=== PATIENT | female | born 1995 | race Caucasian/White ===

== ENCOUNTER 2023-11-06 10:16 | Emergency (ER) | payer OTHER ==
[2023-11-06 11:03] VITALS: BP 106/72; PULSE 90; RESP 18; TEMP 97.2; O2SAT 96
[2023-11-06 11:21] LABS: Absolute Neutrophil Ct (ANC) 2.73 x10^3/uL (1.4-6.9); BASOPHIL % 0.4 % (0.0-0.4); Basophil (Absolute #) 0.02 x10^3/uL (0-0.4); Eosinophil % 1.5 % (0.00-5.0); Eosinophil (Absolute #) 0.07 x10^3/uL (0-0.5); Hematocrit 39.1 % (35-47); IMMATURE GRAN # 0.01 x10^3u/L (0.00-0.03); IMMATURE GRAN % 0.2 % (0.00-0.4); Lymphocyte (Absolute #) 1.73 x10^3/uL (1.0-4.6); Lymphocytes % 36.3 % (24.0-44.0); Mean Cell Volume 89.3 fL (78-100); Mean Corpuscular Hemoglobin 29.7 pg (26-32); Mean Corpuscular Hgb Concent. 33.2 g/dL (32-36); Mean Platelet Volume 10.2 fL (7.5-11.0); Monocyte (Absolute #) 0.21 x10^3/uL (0.0-1.3); Monocytes % 4.4 % (0.0-12.0); Neutrophil % 57.2 % (36.0-66.0); Platelet Count 222 x10^3/uL (150-450); Red Blood Count 4.38 x10^6/uL (4.1-5.4); Red Cell Distribution Width 11.8 % (11.5-14.0); White Blood Count 4.8 x10^3/uL (4.0-10.5)
[2023-11-06 11:35] LABS: ALBUMIN 4.3 g/dL (3.5-5.0); ANION GAP 12.4 MEQ/L (5-15); BILIRUBIN,TOTAL 0.5 mg/dL (0.2-1.3); Calcium 9.1 mg/dL (8.4-10.2); Creatinine 1 0.9 mg/dL (0.52-1.04); EST GLOMERULAR FILTRATION RATE 88.8 ML/MIN; Potassium 4.1 mmol/L (3.5-5.1); Total Protein 7.7 g/dL (6.3-8.2)
--- NOTE | 2023-11-06 11:46 | ERPHSYRPT ---
- History of Present Illness Time Seen by Provider: 11/06/23 11:42 Source: patient Exam Limitations: no limitations Patient Subjective Stated Complaint: pt here for headache, she states pressure for 3 1/2 weeks now, no injury, Triage Nursing Assessment: pt alert, oriented,. walked in, easy easy skin w/d/p. no edema noted, pupils 3mm, moves all ext well Physician History: pt here for headache, she states pressure for 3 1/2 weeks now, no injury As her pain become unbearable she came to the emergency room. Patient is 28-year-old female otherwise healthy started having a headache off and on mainly on the mu-ism area and top of the head for last 3 to 4 weeks. Patient was also complaining of pressure around her nose and the maxillary sinus area. Patient is also complaining of pressure in her left ear. Patient was seen in the office 2 weeks ago at that time patient was started on migraine medication which has not helped her a lot. Patient was also seen in acute care where he was diagnosed with otitis media and started her on prednisone which helped her for a while but then her headache came back. She denies any nausea vomiting syncopal episode shortness of breath or chest pain. Timing/Duration: week(s) (3-4 weeks) Head Pain Location: parietal Severity of Pain-Max: mild Severity of Pain-Current: mild Recent Head Trauma: no recent headache/trauma Associated Symptoms: other (pressure like feeling on top of head and ear left side) Allergies/Adverse Reactions: No Known Drug Allergies Allergy (Unverified 11/06/23 10:57) Home Medications: Famotidine 20 mg [Pepcid 20 MG] 20 mg PO DAILY 11/06/23 [History] Hx Influenza Vaccination/Date Given: No Hx Pneumococcal Vaccination/Date Given: No Immunizations Up to Date: Yes Travel Risk - International Travel Have you traveled outside of the country in past 3 weeks: No - Coronavirus Screening Are you exhibiting any of the following symptoms?: No Close contact with a COVID-19 positive Pt in past 14-21 Days: No - Vaccine Status Have you recieved a Covid-19 vaccination: No - Review of Systems Constitutional: No Fever, No Chills Eyes: No Symptoms Ears, Nose, & Throat: Other (maxillary sinus pain) Respiratory: No Cough, No Dyspnea Cardiac: No Chest Pain, No Edema, No Syncope Abdominal/Gastrointestinal: No Abdominal Pain, No Nausea, No Vomiting, No Diarrhea Genitourinary Symptoms: No Dysuria Musculoskeletal: No Back Pain, No Neck Pain Skin: No Rash Neurological: Headache, No Dizziness, No Focal Weakness, No Sensory Changes Psychological: No Symptoms Endocrine: No Symptoms All Other Systems: Reviewed and Negative - Past Medical History Pertinent Past Medical History: No - Past Surgical History Past Surgical History: Yes Musculoskeletal: Orthopedic Surgery Other Surgical History: hand and foot - Social History Smoking Status: Former smoker Exposure to second hand smoke: No Drug Use: none - Female History Hx Last Menstrual Period: last week Hx Now: No - Nursing Vital Signs Nursing Vital Signs: Initial Vital Signs Temperature 97.2 F 11/06/23 11:02 Pulse Rate 90 11/06/23 11:02 Respiratory Rate 18 11/06/23 11:02 Blood Pressure 106/72 11/06/23 11:02 O2 Sat by Pulse Oximetry 96 11/06/23 11:02 Pain Scale Pain Intensity 7 - Physical Exam General Appearance: no apparent distress Eye Exam: PERRL/EOMI Ears, Nose, Throat Exam: normal ENT inspection, moist mucous membranes, other (bilateral maxillary sinus tender ness) Neck Exam: normal inspection, supple, full range of motion, No meningismus Respiratory Exam: normal breath sounds, lungs clear Cardiovascular Exam: regular rate/rhythm, normal heart sounds Gastrointestinal/Abdominal Exam: soft, No tenderness, No distention Back Exam: normal inspection, normal range of motion Mental Status Exam: alert, oriented x 3, 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 Exam: normal speech, PERRL, No facial droop Coordination/Gait Exam: normal cerebellar function Motor/Sensory Exam: no motor deficit, no sensory deficit Skin Exam: normal color, warm, dry, No rash SpO2: 96 - Course Nursing assessment & vital signs reviewed: Yes - CT Exams Head CT Interpretation: Tele-radiologist Report Ordered Tests: Active Orders 24 hr Category Date Time Status HEAD WITHOUT CONTRAST [CT] Stat Exams 11/06/23 11:09 Completed CBC W DIFF Stat Lab 11/06/23 11:15 Completed CMP Stat Lab 11/06/23 11:15 Completed Lab/Rad Data: Laboratory Result Diagrams 11/06/23 11:15 11/06/23 11:15 Laboratory Results 11/06/23 11/06/23 Range/Units 11:15 11:15 WBC 4.8 (4.0-10.5) x10^3/uL RBC 4.38 (4.1-5.4) x10^6/uL Hgb 13.0 (12.0-16.0) g/dL Hct 39.1 (35-47) % MCV 89.3 (78-100) fL MCH 29.7 (26-32) pg MCHC 33.2 (32-36) g/dL RDW 11.8 (11.5-14.0) % Plt Count 222 (150-450) x10^3/uL MPV 10.2 (7.5-11.0) fL Gran % 57.2 (36.0-66.0) % Immature Gran % (Auto) 0.2 (0.00-0.4) % Nucleat RBC Rel Count 0.0 (0.00-0.1) % Eos # (Auto) 0.07 (0-0.5) x10^3/uL Immature Gran # (Auto) 0.01 (0.00-0.03) x10^3u/L Absolute Lymphs (auto) 1.73 (1.0-4.6) x10^3/uL Absolute Monos (auto) 0.21 (0.0-1.3) x10^3/uL Absolute Nucleated RBC 0.00 (0.00-0.01) x10^3u/L Lymphocytes % 36.3 (24.0-44.0) % Monocytes % 4.4 (0.0-12.0) % Eosinophils % 1.5 (0.00-5.0) % Basophils % 0.4 (0.0-0.4) % Absolute Granulocytes 2.73 (1.4-6.9) x10^3/uL Basophils # 0.02 (0-0.4) x10^3/uL Sodium 138 (137-145) mmol/L Potassium 4.1 (3.5-5.1) mmol/L Chloride 103 (98-107) mmol/L Carbon Dioxide 26 (22-30) mmol/L Anion Gap 12.4 (5-15) MEQ/L BUN 10 (7-17) mg/dL Creatinine 0.90 (0.52-1.04) mg/dL Estimated GFR 88.8 ML/MIN Glucose 102 (74-106) mg/dL Calcium 9.1 (8.4-10.2) mg/dL Total Bilirubin 0.50 (0.2-1.3) mg/dL AST 22 (14-36) U/L ALT 13 (0-35) U/L Alkaline Phosphatase 45 (38-126) U/L Serum Total Protein 7.7 (6.3-8.2) g/dL Albumin 4.3 (3.5-5.0) g/dL 0007 CT/HEAD WITHOUT CONTRAST CLINICAL HISTORY:headache parietal area for 3 weeks COMPARISON:none. TECHNIQUE:CT scan of the brain without contrast administration. Images were acquired in axial cuts with coronal and sagittal reformation. FINDINGS: No area of abnormally low or high attenuation value was seen. No CT evidence of acute infarction. Normal size, position and configuration of the ventricular system. No shift of the midline structures. No evidence of intra or extra axial recent hematoma. Normal appearance of the posterior fossa structures including the brainstem and cerebellum. Bone window settings showed no evidence of fractures or destructive lesions. Evidence of cavum septum pellucidum. S-shaped deviated nasal septum. Pam bullosae in both middle turbinates. IMPRESSION: Unremarkable CT scan of the brain. Evidence of cavum septum pellucidum ( normal variant ). S-shaped deviated nasal septum. - Progress Progress: improved Counseled pt/family regarding: lab results, diagnosis, need for follow-up, rad results Medical Desision Making - Diagnostic Testing Diagnostic test were ordered, analyzed, and reviewed by me: Yes Radiological Interpretation: Reviewed by me - Risk of complications Minimal Risk: Minimal risk of morbidity - Departure Departure Disposition: Home Clinical Impression: Headache on top of head, Deviated nasal septum, Maxillary sinusitis, chronic Condition: Stable Critical Care Time: No Referrals: MAHESH WEAVER MD [Primary Care Provider] - Follow up/PCP as directed Instructions: Deviated septum, Sinusitis, Adult (DC), Sinus Headache (DC), Headache, Adult (DC) Additional Instructions: Discharge/Care Plan BRANTSAILAJA MEDINA was seen on 11/06/23 in the Emergency Room. The patient was counseled regarding Diagnosis,Lab results, Imaging studies, need for follow up and when to return to the Emergency Room. Prescriptions given: Discharge Note I have spoken with the patient and/or caregivers. I have explained the patient's condition, diagnosis and treatment plan based on the information available to me at this time. I have answered the patient's and/or caregiver's questions and addressed any concerns. The patient and/or caregivers have as good understanding of the patient's diagnosis, condition and treatment plan as can be expected at this point. The vital signs have been stable. The patient's condition is stable and appropriate for discharge from the emergency department. The patient will pursue further outpatient evaluation with the primary care physician or other designated or consulting physician as outlined in the discharge instructions. The patient and/or caregivers are agreeable to this plan of care and follow-up instructions have been explained in detail. The patient and/or caregivers have received these instruction. The patient/and or caregivers are aware that any significant change in condition or worsening of symptoms should prompt an immediate return to this or the closest emergency department or call 911. SAILAJA GUO was seen on 11/06/23 n the Emergency Room. At that time you were treated for an emergent condition, during your visit Laboratory, Radiology and/or other procedures may have been ordered. It is very important that you follow-up with your Primary Care Physician MAHESH WEAVER within the next 24-48 hours to review your Emergency Room visit and the final results of testing that was ordered. Some test results such as Urine Cultures, Blood Cultures, and other cultures if ordered will not be finalized for 24-48 hours. If you do not have a Primary Care Provider please call the medical records department at [phone] ext [phone] to obtain a copy of your results or you may sign into our patient portal to obtain these results by visiting us @ [email or web address] and completing the following steps: 1. Click on the Patient Portal link 2. Click the Patient Self Enrollment Link to complete the enrollment form and entering your 3. Once the enrollment form is completed you will receive an email with a temporary ID and password at the email address you provided. 4. Next choose a user name and password. Your user name must be at least 4 characters long and your password must be at least 4 characters long. 5. Choose a security question from the list and provide your answer to the question. If you already have signed into the Health Portal you may access your Health Care Information 21/06 by the following steps: 1. Login to our website @ [email or web address] 2. Enter your original user name and password. FAQS The [facility] Health Portal is an online tool that contains your Lab Results, Radiology Reports, Visit History, Discharge Instructions and Health Summary Lab and Radiology Results will not be available for 72 hours on the portal. The Portal is a secure site, passwords are encryted and URLs are re-written so they cannot be copied and pasted. You and authorized family members are the only ones who can access your Portal. Also there is a timeout feature that protects your information if you leave the Portal page open. If you have technical difficulty please use the Contact Us link on the page this will allow you to submit any questions you have regarding the Portal or you may contact the Medical Record Department at [phone]. Prescriptions: Azithromycin [Azithromycin 250 mg Pack] 250 mg PO UD #6 tablet Fluticasone Propionate [Flonase NASAL] 16 gm NS BID #60 inh
--- NOTE | 2023-11-06 12:51 | XRAY ---
CLINICAL HISTORY:headache parietal area for 3 weeks COMPARISON:none. TECHNIQUE:CT scan of the brain without contrast administration. Images were acquired in axial cuts with coronal and sagittal reformation. FINDINGS: No area of abnormally low or high attenuation value was seen. No CT evidence of acute infarction. Normal size, position and configuration of the ventricular system. No shift of the midline structures. No evidence of intra or extra axial recent hematoma. Normal appearance of the posterior fossa structures including the brainstem and cerebellum. Bone window settings showed no evidence of fractures or destructive lesions. Evidence of cavum septum pellucidum. S-shaped deviated nasal septum. Pam bullosae in both middle turbinates. IMPRESSION: Unremarkable CT scan of the brain. Evidence of cavum septum pellucidum ( normal variant ). S-shaped deviated nasal septum. Electronically Signed by: Wanda Acevedo MD. (11/06/2023 12:47:24 EST)
== END 2023-11-06 13:31 | disposition home or self-care (01) ==
LOC: ED 10:16
DX: J32.0 Chronic maxillary sinusitis (principal); J34.2 Deviated nasal septum; R51.9 Headache, unspecified; Z79.899 Other long term (current) drug therapy; Z28.310 Unvaccinated for COVID-19
CPT/HCPCS: 36415; 70450; 80053; 85025; 99282

== ENCOUNTER 2025-10-14 10:08 | Emergency (ER) | payer OTHER ==
[2025-10-14 10:24] VITALS: RESP 18; TEMP 97.9
[2025-10-14 10:55] LABS: BASOPHIL % 0.4 % (0.1-1.2); Basophil (Absolute #) 0.02 x10^3/uL (0.01-0.08); Eosinophil (Absolute #) 0.08 x10^3/uL (0.04-0.36); Hematocrit 38.9 % (34.1-44.9); Hemoglobin 12.6 g/dL (11.2-15.7); IMMATURE GRAN # 0.01 x10^3u/L (0.001-0.031); IMMATURE GRAN % 0.2 % (0.001-0.429); Lymphocyte (Absolute #) 1.95 x10^3/uL (1.18-3.74); Mean Corpuscular Hemoglobin 29.0 pg (25.6-32.2); Mean Corpuscular Hgb Concent. 32.4 g/dL (32.2-35.5); Monocyte (Absolute #) 0.26 x10^3/uL (0.24-0.86); NUCLEATED RBC # 0.00 x10^3u/L (0.00-0.012); NUCLEATED RBC % 0.0 % (0.00-0.2); Platelet Count 225 x10^3/uL (182-369); Red Blood Count 4.34 x10^6/uL (3.93-5.22); White Blood Count 5.5 x10^3/uL (3.98-10.04)
[2025-10-14] MEDS ORDERED: TYLENOL 325 MG ONE (10:55)
[2025-10-14] MEDS ORDERED: Cyclobenzaprine 10 MG ONE (10:55)
[2025-10-14] MEDS: TYLENOL 325 MG PO ONE (10:56)
--- NOTE | 2025-10-14 10:56 | ERPHSYRPT ---
- History of Present Illness Time Seen by Provider: 10/14/25 10:09 Source: patient Exam Limitations: no limitations Patient Subjective Stated Complaint: Pt. states, "I went to the chiropractor on wednesday for an adjustment and ever since I have been having that awful pain in my spine and over into my left shoulder. I have a slipped disc between L4-L5 and it doesn't normally give me any trouble but it is really hurting bad. The pain moves up my spine into my shoulder and makes my arms and legs tingle. It is more like a discomfort an itch I can't scratch" Triage Nursing Assessment: Pt. ambulates to room with slow stiff gait, she is A&Ox3, Skin P/W/D, REsp. even unlabored, tearful. Moving slowly and stiff. Sensation in tact to all four ext. Physician History: 30-year-old female presents to the emergency room with lower back pain and neck pain patient reports described numbness and tingling goes down her left arm she does recall pain and tingling that goes down her bilateral lower extremities denies any trouble urinating denies any problems defecating denies any fevers denies any prior history of IV drug use she reports she recently had adjustments done by chiropractor she also had some cupping done on Wednesday the chiropractor just was on Wednesday she is now in the ED for worsening pain and tingling Timing/Duration: day(s) (4) Quality: aching Back Pain Location: C-spine, T-spine, lumbar spine Back Pain Radiation: lower legs Severity of Pain-Max: mild Severity of Pain-Current: mild Associated Symptoms: numbness in legs/feet, tingling in legs/feet, muscle spasms, No light-headedness, No sensory/motor loss Allergies/Adverse Reactions: No Known Drug Allergies Allergy (Unverified 11/06/23 10:57) Hx Influenza Vaccination/Date Given: No Hx Pneumococcal Vaccination/Date Given: No Travel Risk - International Travel Have you traveled outside of the country in past 3 weeks: No - Emerging Infectious Disease Are you exhibiting symptoms associated with any current EIDs: No - Review of Systems Constitutional: No Fever, No Chills Eyes: No Symptoms Ears, Nose, & Throat: No Symptoms Respiratory: No Cough, No Dyspnea Cardiac: No Chest Pain, No Edema, No Syncope Abdominal/Gastrointestinal: No Abdominal Pain, No Nausea, No Vomiting, No Diarrhea Genitourinary Symptoms: No Dysuria Musculoskeletal: Back Pain, Neck Pain Skin: No Rash Neurological: No Dizziness, No Focal Weakness, No Sensory Changes Psychological: No Symptoms Endocrine: No Symptoms All Other Systems: Reviewed and Negative - Past Medical History Pertinent Past Medical History: Yes Other Medical History: slipped disc L4-L5 - Past Surgical History Past Surgical History: Yes Musculoskeletal: Orthopedic Surgery Other Surgical History: hand and foot - Female History Hx Last Menstrual Period: 2 weeks ago Hx Now: No - Social History Smoking Status: Former smoker Exposure to second hand smoke: No Drug Use: none - Social Determinants of Health Will the patient participate in the screening: Declined to provide - Nursing Vital Signs Nursing Vital Signs: Initial Vital Signs Temperature 97.9 F 10/14/25 10:09 Pulse Rate 107 H 10/14/25 10:09 Respiratory Rate 18 10/14/25 10:09 Blood Pressure 148/110 10/14/25 10:09 O2 Sat by Pulse Oximetry 98 10/14/25 10:09 Pain Scale Pain Intensity [Back] 7 Pain Intensity 7 - Physical Exam General Appearance: no apparent distress, alert Eye Exam: PERRL/EOMI, eyes nml inspection Neck Exam: normal inspection, non-tender, other (paraspinal muscle spasms), No meningismus, No midline tenderness Respiratory Exam: normal breath sounds, lungs clear, No respiratory distress Cardiovascular Exam: regular rate/rhythm, normal heart sounds Gastrointestinal Exam: soft, No tenderness, No mass Back Exam: muscle spasm Extremity Exam: normal inspection, normal range of motion, No calf tenderness, No pedal edema Neurologic Exam: alert, oriented x 3, cooperative, 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-XII nml as tested, normal mood/affect, nml station & gait, sensation nml, No motor deficits Skin Exam: normal color, warm, dry, No rash SpO2: 98 Ordered Tests: Active Orders 24 hr Category Date Time Status IV Insertion STAT Care 10/14/25 10:[address] ANGIOGRAPHY NECK [CT] Stat Exams 10/14/25 10:45 Completed CTA HEAD W AND/OR WO CONTRAST [CT] Stat Exams 10/14/25 11:03 Completed LUMBAR SPINE W/O [CT] Stat Exams 10/14/25 10:43 Completed THORACIC SPINE W/O CONTRAST [CT] Stat Exams 10/14/25 10:43 Taken CBC W DIFF Stat Lab 10/14/25 10:50 Completed CMP Stat Lab 10/14/25 10:50 Completed CULTURE,URINE Stat Lab 10/14/25 10:43 Received ESR [Erythrocyte Sedimentation Rate] Stat Lab 10/14/25 10:50 Completed Lactic Acid Stat Lab 10/14/25 10:43 Completed UA W/RFX UR CULTURE Stat Lab 10/14/25 10:43 Completed Medication Summary Discontinued Medications Generic Name Dose Route Start Last Admin Trade Name Alayna PRN Reason Stop Dose Admin Acetaminophen 650 mg 10/14/25 10:43 10/14/25 10:56 Acetaminophen 325 Mg Tablet PO 10/14/25 10:44 650 mg STAT ONE Administration Acetaminophen Confirm 10/14/25 10:55 Acetaminophen 325 Mg Tablet Administered 10/14/25 10:56 Dose 650 mg .ROUTE .STK-MED ONE Cyclobenzaprine HCl 10 mg 10/14/25 10:43 10/14/25 10:57 Cyclobenzaprine Hcl 10 Mg Tablet PO 10/14/25 10:44 10 mg STAT ONE Administration Cyclobenzaprine HCl Confirm 10/14/25 10:55 Cyclobenzaprine Hcl 10 Mg Tablet Administered 10/14/25 10:56 Dose 10 mg .ROUTE .STK-MED ONE Sodium Chloride 1,000 mls @ 999 mls/hr 10/14/25 10:43 10/14/25 12:33 Sodium Chloride 0.9% 1000 Ml IV 10/14/25 11:43 Infused .Q1H1M STA Infusion Sodium Chloride Confirm 10/14/25 10:55 Sodium Chloride 0.9% 1000 Ml Administered 10/14/25 10:56 Dose 1,000 mls @ ud .ROUTE .STK-MED ONE Ketorolac Tromethamine 15 mg 10/14/25 13:21 10/14/25 13:25 Ketorolac Tromethamine 30 Mg/Ml Inj IV 10/14/25 13:22 15 mg STAT ONE Administration Ketorolac Tromethamine Confirm 10/14/25 13:24 Ketorolac Tromethamine 30 Mg/Ml Inj Administered 10/14/25 13:25 Dose 30 mg .ROUTE .STK-MED ONE Lab/Rad Data: Laboratory Result Diagrams 10/14/25 10:50 10/14/25 10:50 Laboratory Results 10/14/25 10/14/25 10/14/25 Range/Units 10:50 10:50 10:50 WBC 5.5 (3.98-10.04) x10^3/uL RBC 4.34 (3.93-5.22) x10^6/uL Hgb 12.6 (11.2-15.7) g/dL Hct 38.9 (34.1-44.9) % MCV 89.6 (79.4-94.8) fL MCH 29.0 (25.6-32.2) pg MCHC 32.4 (32.2-35.5) g/dL RDW 11.8 (11.7-14.4) % Plt Count 225 (182-369) x10^3/uL MPV 10.4 (9.4-12.3) fL Gran % 58.1 (34.0-71.1) % Immature Gran % (Auto) 0.2 (0.001-0.429) % Nucleat RBC Rel Count 0.0 (0.00-0.2) % Eos # (Auto) 0.08 (0.04-0.36) x10^3/uL Immature Gran # (Auto) 0.01 (0.001-0.031) x10^3u/L Absolute Lymphs (auto) 1.95 (1.18-3.74) x10^3/uL Absolute Monos (auto) 0.26 (0.24-0.86) x10^3/uL Absolute Nucleated RBC 0.00 (0.00-0.012) x10^3u/L Lymphocytes % 35.2 (19.3-51.7) % Monocytes % 4.7 (4.7-12.5) % Eosinophils % 1.4 (0.7-5.8) % Basophils % 0.4 (0.1-1.2) % Absolute Granulocytes 3.22 (1.56-6.13) x10^3/uL Basophils # 0.02 (0.01-0.08) x10^3/uL ESR 14 (0-20) mm/hr Sodium 137 (135-145) mmol/L Potassium 4.1 (3.5-5.1) mmol/L Chloride 107 (98-107) mmol/L Carbon Dioxide 24 (22-30) mmol/L Anion Gap 11.2 (5-15) MEQ/L BUN 10 (7-17) mg/dL Creatinine 0.92 (0.52-1.04) mg/dL Estimated GFR 85.4 ML/MIN Glucose 94 (74-106) mg/dL Lactic Acid (0.4-2.0) Calcium 8.8 (8.4-10.2) mg/dL Total Bilirubin 0.40 (0.2-1.3) mg/dL AST 22 (14-36) U/L ALT 12 (0-35) U/L Alkaline Phosphatase 53 (38-126) U/L Serum Total Protein 7.8 (6.3-8.2) g/dL Albumin 4.4 (3.5-5.0) g/dL Urine Color (Yellow) Urine Appearance (Clear) Urine pH (4.6-8.0) Ur Specific Friend (1.005-1.030) Urine Protein (Negative) Urine Glucose (UA) (Negative) mg/dL Urine Ketones (Negative) Urine Blood (Negative) Urine Nitrite (Negative) Urine Bilirubin (Negative) Urine Urobilinogen (0.2) mg/dL Ur Leukocyte Esterase (Negative) U Hyaline Cast (Auto) (0-2) /LPF Urine Microscopic RBC (0-5) /HPF Urine Microscopic WBC (0-5) /HPF Ur Epithelial Cells (None Seen) /HPF Urine Bacteria (None Seen) /HPF Urine Culture Reflexed (NO) 10/14/25 10/14/25 Range/Units 10:43 10:43 WBC (3.98-10.04) x10^3/uL RBC (3.93-5.22) x10^6/uL Hgb (11.2-15.7) g/dL Hct (34.1-44.9) % MCV (79.4-94.8) fL MCH (25.6-32.2) pg MCHC (32.2-35.5) g/dL RDW (11.7-14.4) % Plt Count (182-369) x10^3/uL MPV (9.4-12.3) fL Gran % (34.0-71.1) % Immature Gran % (Auto) (0.001-0.429) % Nucleat RBC Rel Count (0.00-0.2) % Eos # (Auto) (0.04-0.36) x10^3/uL Immature Gran # (Auto) (0.001-0.031) x10^3u/L Absolute Lymphs (auto) (1.18-3.74) x10^3/uL Absolute Monos (auto) (0.24-0.86) x10^3/uL Absolute Nucleated RBC (0.00-0.012) x10^3u/L Lymphocytes % (19.3-51.7) % Monocytes % (4.7-12.5) % Eosinophils % (0.7-5.8) % Basophils % (0.1-1.2) % Absolute Granulocytes (1.56-6.13) x10^3/uL Basophils # (0.01-0.08) x10^3/uL ESR (0-20) mm/hr Sodium (135-145) mmol/L Potassium (3.5-5.1) mmol/L Chloride (98-107) mmol/L Carbon Dioxide (22-30) mmol/L Anion Gap (5-15) MEQ/L BUN (7-17) mg/dL Creatinine (0.52-1.04) mg/dL Estimated GFR ML/MIN Glucose (74-106) mg/dL Lactic Acid 0.9 (0.4-2.0) Calcium (8.4-10.2) mg/dL Total Bilirubin (0.2-1.3) mg/dL AST (14-36) U/L ALT (0-35) U/L Alkaline Phosphatase (38-126) U/L Serum Total Protein (6.3-8.2) g/dL Albumin (3.5-5.0) g/dL Urine Color Yellow (Yellow) Urine Appearance Clear (Clear) Urine pH 8.0 (4.6-8.0) Ur Specific Friend <=1.005 (1.005-1.030) Urine Protein Negative (Negative) Urine Glucose (UA) Negative (Negative) mg/dL Urine Ketones Negative (Negative) Urine Blood Trace (Negative) Urine Nitrite Negative (Negative) Urine Bilirubin Negative (Negative) Urine Urobilinogen 0.2 (0.2) mg/dL Ur Leukocyte Esterase Moderate A (Negative) U Hyaline Cast (Auto) NONE SEEN (0-2) /LPF Urine Microscopic RBC 0-2 (0-5) /HPF Urine Microscopic WBC 6-10 A (0-5) /HPF Ur Epithelial Cells Rare (None Seen) /HPF Urine Bacteria None Seen (None Seen) /HPF Urine Culture Reflexed YES (NO) - Progress Progress Note: 10/14/25 10:56 Pending CTA neck as well as CT lumbar and thoracic spine patient was given Tylenol Flexeril pending lab work 10/14/25 13:[address] angiography of the head with no evidence of significant vascular abnormalities. 2. No evidence of acute infarct, hemorrhage, or mass effect. 3. A small caliber left sigmoid sinus, however, no thrombosis, could be related to normal anatomical variation or hypolastic. 4. S-shaped deviated nasal septum with bilateral hypertrophied inferior nasal turbinates. (Unchanged) 10/14/25 13:19 Carotid Arteries: Common carotid arteries, internal carotid arteries, and external carotid arteries bilaterally are well-opacified. No evidence of significant stenosis, occlusion, or aneurysm. No significant atherosclerotic changes. Vertebral Arteries: Vertebral arteries bilaterally are well-opacified. No evidence of significant stenosis, occlusion, or aneurysm. No significant atherosclerotic changes. Jugular Veins: The left jugular vein is of small caliber with still opacified lumen. Mild dilated left external jugular vein along its course till its termination at the right subclavian vein lateral to the junction of the subclavian vein and the internal jugular vein. Normal opacification of the internal and external jugular veins bilaterally. No evidence of thrombosis or compression. Subclavian Arteries: Subclavian arteries bilaterally are well-opacified. No evidence of significant stenosis, occlusion, or aneurysm. Thyroid Gland: Normal size and morphology of the thyroid gland. No masses or nodules. Soft Tissues: Multiple cervical oval-shaped lymph nodes noted at stations 1a, 2, 3, and 5, the largest is seen at station 2A, measuring 8 mm in short axis, likely reactive Normal appearance of the surrounding soft tissues of the neck. No abnormal masses or lymphadenopathy. Cervical Spine: Straightening of the cervical spine suggests neck muscle spasm. No fractures, lytic or sclerotic lesions. Imaged through the upper chest revealed faint ground glass opacities and subpleural reticulations, which could be related to respiratory motion . Clinical correlation is advised. IMPRESSION: 1. Normal CT angiography of the neck with no evidence of significantof significant stenosis, occlusion, or aneurysm. 2. The left jugular vein is of small caliber with still opacified lumen. 3. Mild dilated left external jugular vein along its course till its termination at the right subclavian vein . 4. Multiple cervical oval shape lymph nodes noted at atation 1a, 2, 3 and 5 , likley reactive 5. Neck muscle spasm. 10/14/25 13:21 L4-L5 and L5-S1 mild diffuse disc bulge no evidence of acute fracture dislocation or soft tissue abnormalities tiny nonobstructing left renal stones - Departure Departure Disposition: Home Clinical Impression: Bulging disc, Muscle spasms of neck Condition: Stable Critical Care Time: No Referrals: BETSEY PINEDA MD [Primary Care Provider, [facility]] - Follow up/PCP as directed Instructions: Herniated disc, Neck pain, Low Back Pain (DC), Sciatica (DC) Prescriptions: Naproxen 500 mg [Naprosyn 500 MG] 500 mg PO BIDPRN PRN #10 tablet PRN Reason: Pain
[2025-10-14] MEDS: Cyclobenzaprine 10 MG PO ONE (10:57)
[2025-10-14 11:07] LABS: Glucose, Urine Negative (Negative); Protein,Urine Dip Negative (Negative); RBC 0-2 /HPF (0-5)
[2025-10-14 11:15] LABS: Calcium 8.8 mg/dL (8.4-10.2); Carbon Dioxide 24.0 mmol/L (22-30); Creatinine 1 0.92 mg/dL (0.52-1.04); EST GLOMERULAR FILTRATION RATE 85.4 ML/MIN; Glucose 94.0 mg/dL (74-106); Potassium 4.1 mmol/L (3.5-5.1); SGOT/AST 22.0 U/L (14-36); SGPT/ALT 12.0 U/L (0-35); Total Protein 7.8 g/dL (6.3-8.2)
[2025-10-14 12:51] VITALS: PULSE 62
--- NOTE | 2025-10-14 13:12 | XRAY ---
CLINICAL HISTORY: neck pain after adjustment COMPARISON: CT head on 11/06/2023 . TECHNIQUE: Axial CT angiography of the head was done with contrast and sagittal and coronal reformats with MIP reconstructions. One of these 3D techniques was utilized: Maximum Intensity Pixel (MIP), 3D Reconstructed Images, Volume Rendered Images, Surface Shaded Rendering. One of the following dose reduction techniques were utilized for this exam: Automated exposure control, adjustment of the mA and/or kV according to patient size, and use of iterative reconstruction. FINDINGS: Intracranial Arteries: The intracranial portions of the internal carotid arteries, anterior cerebral arteries, middle cerebral arteries, posterior cerebral arteries, basilar artery, and vertebral arteries are well-opacified. No evidence of aneurysm, stenosis, or occlusion. No significant atherosclerotic changes. [place]: The [place] is complete. Normal caliber of the communicating arteries. No vascular malformations or aneurysms. Venous Structures: A small caliber left sigmoid sinus is noted. Normal opacification of the major dural venous sinuses. No evidence of venous sinus thrombosis. Brain Parenchyma: Normal attenuation of the cerebral hemispheres, cerebellum, and brainstem. No evidence of acute infarct, hemorrhage, or mass effect. Evidence of cavum septum pellucidum ( normal variant ), unchnged. Ventricular System: Ventricles are normal in size and configuration. No evidence of hydrocephalus or ventricular enlargement. Skull and Meninges: Normal appearance of the skull. No evidence of meningeal enhancement or thickening. Orbits: Normal appearance of the globes, optic nerves, and extraocular muscles. No evidence of orbital masses or abnormal signal. Sinuses: S-shaped deviated nasal septum. Bilateral hypertrophied inferior nasal turbinates. Clear examined sinuses. IMPRESSION: 1. Normal CT angiography of the head with no evidence of significant vascular abnormalities. 2. No evidence of acute infarct, hemorrhage, or mass effect. 3. A small caliber left sigmoid sinus, however, no thrombosis, could be related to normal anatomical variation or hypolastic. 4. S-shaped deviated nasal septum with bilateral hypertrophied inferior nasal turbinates. (Unchanged) Electronically Signed by: Gen Comer MD. (10/14/2025 13:10:53 EST)
--- NOTE | 2025-10-14 13:16 | XRAY ---
CLINICAL HISTORY: neck pain after adjustment COMPARISON: None. TECHNIQUE: CT angiography study of the neck vessels with IV contrast was performed and multiple axial sections were obtained with coronal and sagittal reconstructions. 80cc of isovue 370 was administered. One of the following dose reduction techniques were utilized for this exam: Automated exposure control, adjustment of the mA and/or kV according to patient size, and use of iterative reconstruction. One of these 3D techniques was utilized: Maximum Intensity Pixel (MIP), 3D Reconstructed Images, Volume Rendered Images, Surface Shaded Rendering. FINDINGS: Carotid Arteries: Common carotid arteries, internal carotid arteries, and external carotid arteries bilaterally are well-opacified. No evidence of significant stenosis, occlusion, or aneurysm. No significant atherosclerotic changes. Vertebral Arteries: Vertebral arteries bilaterally are well-opacified. No evidence of significant stenosis, occlusion, or aneurysm. No significant atherosclerotic changes. Jugular Veins: The left jugular vein is of small caliber with still opacified lumen. Mild dilated left external jugular vein along its course till its termination at the right subclavian vein lateral to the junction of the subclavian vein and the internal jugular vein. Normal opacification of the internal and external jugular veins bilaterally. No evidence of thrombosis or compression. Subclavian Arteries: Subclavian arteries bilaterally are well-opacified. No evidence of significant stenosis, occlusion, or aneurysm. Thyroid Gland: Normal size and morphology of the thyroid gland. No masses or nodules. Soft Tissues: Multiple cervical oval-shaped lymph nodes noted at stations 1a, 2, 3, and 5, the largest is seen at station 2A, measuring 8 mm in short axis, likely reactive Normal appearance of the surrounding soft tissues of the neck. No abnormal masses or lymphadenopathy. Cervical Spine: Straightening of the cervical spine suggests neck muscle spasm. No fractures, lytic or sclerotic lesions. Imaged through the upper chest revealed faint ground glass opacities and subpleural reticulations, which could be related to respiratory motion . Clinical correlation is advised. IMPRESSION: 1. Normal CT angiography of the neck with no evidence of significantof significant stenosis, occlusion, or aneurysm. 2. The left jugular vein is of small caliber with still opacified lumen. 3. Mild dilated left external jugular vein along its course till its termination at the right subclavian vein . 4. Multiple cervical oval shape lymph nodes noted at atation 1a, 2, 3 and 5 , likley reactive 5. Neck muscle spasm. Electronically Signed by: Gen Comer MD. (10/14/2025 13:14:47 EST)
[2025-10-14 13:20] VITALS: O2SAT 98
--- NOTE | 2025-10-14 13:20 | XRAY ---
CLINICAL HISTORY: pain after adjustment COMPARISON: No previous studies are available for comparison. TECHNIQUE: CT scan of the lumbar spine was performed without the administration of intravenous contrast. Contiguous axial images were obtained from the upper lumbar spine to the sacrum. Coronal and sagittal reformatted images were also reviewed. One of the following dose reduction techniques was utilized for this exam. Automated exposure control, adjustment of the mA and/or kV according to patient size, and use of iterative reconstruction. FINDINGS: Vertebrae: The vertebral bodies are normal in height and alignment. No evidence of acute fracture or dislocation. The cortical and trabecular bone patterns are normal. No signs of lytic or sclerotic lesions. Normal configuration of the posterior elements. Unfused L1 right transverse process (variant). Small anterior osteophytes at the T10/11 opposing vertebral end plates. Intervertebral Discs: L4-5: A mild diffuse disc bulge is present, causing mild bilateral neural foraminal stenosis. No spinal canal stenosis is seen. L5-S1: A mild diffuse disc bulge is present, causing mild bilateral neural foraminal stenosis. No spinal canal stenosis is seen There is no other significant disc pathology. S1-2 disc calcification is noted. The intervertebral disc spaces are preserved. No evidence of significant disc bulging or herniation. Normal morphology of the ligamentum flava. No arthropathy of the uncovertebral and zygapophyseal joints. No significant spinal canal stenosis. Facet Joints: The facet joints are normal without evidence of dislocation, subluxation, or significant degenerative changes. Neural Foramina: The neural foramina are patent bilaterally at all levels. No evidence of foraminal narrowing or nerve root compression. Paraspinal Soft Tissues: The paraspinal soft tissues are normal in appearance without evidence of mass or abnormal fluid collection. Additional Findings: No other significant findings are noted in the visualized soft tissue structures or bony elements. Mildly loaded colon with fecal matter. Tiny non-obstructing left renal stones. IMPRESSION: 1. L4-5 and L5-S1 mild diffuse disc bulge. 2. No evidence of acute fracture, dislocation, or soft tissue abnormalities. 3. Tiny non-obstructing left renal stones. Electronically Signed by: Gen Comer MD. (10/14/2025 13:18:30 EST)
[2025-10-14] MEDS ORDERED: TORAdol 30 mg Injection ONE (13:24)
[2025-10-14] MEDS: TORAdol 30 mg Injection IV ONE (13:25)
[2025-10-14 13:46] VITALS: BP 108/70
--- NOTE | 2025-10-14 13:52 | XRAY ---
CLINICAL HISTORY: pain after adjustment COMPARISON: No previous studies are available for comparison. TECHNIQUE: CT scan of the thoracic spine was performed without the administration of intravenous contrast. Contiguous axial images were obtained from the upper thoracic spine to the lower thoracic spine. Coronal and sagittal reformatted images were also reviewed. One of the following dose reduction techniques was utilized for this exam. Automated exposure control, adjustment of the mA and/or kV according to patient size, and use of iterative reconstruction. FINDINGS: Vertebrae: Thoracic spondylitic changes are present, with anterior marginal osteophytes, shmorl's nodes, and sclerosis of the lower thoracic vertebral end plates. Mildly reduced height of the T8 vertebral body. No evidence of acute fracture or dislocation. The cortical and trabecular bone patterns are normal. No signs of lytic or sclerotic lesions. Normal configuration of the posterior elements. Intervertebral Discs: T8-9: Mild diffuse disc bulge with decreased height; however, no significant foraminal and no spinal canal stenosis. No evidence of other disc herniation, bulging, or significant degeneration. No calcifications or ossifications noted within the discs. Facet Joints: The facet joints are normal without evidence of dislocation, subluxation, or significant degenerative changes. Neural Foramina: The neural foramina are patent bilaterally at all levels. No evidence of foraminal narrowing or nerve root compression. Paraspinal Soft Tissues: The paraspinal soft tissues are normal in appearance without evidence of mass or abnormal fluid collection. Additional Findings: No other significant findings are noted in the visualized soft tissue structures or bony elements. Left lower lobe posterior segment ground glass opacities with fine interstitial septal thickening, likely suggesting sequelae of an infectious/inflammatory process. Clinical correlation is advised. Right lower lobe superior segment subpleural nodule with central calcification measures 8 x 8 mm, likely hamartoma. Tiny non-obstructing left renal stones. Unfused right L1 transverse process (variant). IMPRESSION: 1. Lower thoracic spondylotic changes. 2. T8-9 mild diffuse disc bulge. 3. Mildly reduced height of the T8 vertebral body. 4. No evidence of acute fracture, dislocation, or abnormal soft tissue findings. 5. Left lower lobe posterior segment ground glass opacities with fine interstitial septal thickening, likely suggesting sequelae of an infectious/inflammatory process. Clinical correlation is advised. 6. Right lower lobe superior segment subpleural nodule with central calcification measures 8 x 8 mm, likely hamartoma. Lung-Rad Category 2. Recommend continuing annual screening with LDCT. Electronically Signed by: Gen Comer MD. (10/14/2025 13:50:23 EST)
== END 2025-10-14 13:54 | disposition home or self-care (01) ==
LOC: ED 10:08
DX: M51.369 Other intervertebral disc degeneration, lumbar region without mention of lumbar back pain or lower extremity pain (principal); M51.379 Other intervertebral disc degeneration, lumbosacral region without mention of lumbar back pain or lower extremity pain; M62.838 Other muscle spasm; M54.2 Cervicalgia